=== PATIENT | female | born 1975 | race Caucasian/White ===

== ENCOUNTER → 2016-08-06 | Outpatient (CLI) | payer OTHER | LOC: KOH-I 09:30 | DX: M25.521 Pain in right elbow (principal); M25.561 Pain in right knee | CPT/HCPCS: 73080; 73564 ==

== ENCOUNTER 2020-08-24 08:26 | Emergency (ER) | payer OTHER ==
[2020-08-24 09:34] LABS: HEMOGLOBIN 14.9 gm/dl (12.3-15.3); RED BLOOD COUNT 4.65 M/UL (4.00-5.10); WHITE BLOOD COUNT 13.3 K/UL (4.5-11.0)
[2020-08-24 09:52] LABS: BUN/CREATININE RATIO 14 (0-10)
[2020-08-24] MEDS ORDERED: ZOFRAN4 MG PO (11:38)
[2020-08-24] MEDS ORDERED: ZITHROMAX250 MG PO (11:38)
[2020-08-24] MEDS ORDERED: SUDAFED 60 MG T60 MG PO (11:38)
[2020-08-24] MEDS ORDERED: MEDROL DOSEPAK 24 MG PO (11:38)
== END 2020-08-24 12:00 | disposition home or self-care (01) ==
LOC: ER1 08:26
PROVIDERS: Physician Assistant Medical
DX: J06.9 Acute upper respiratory infection, unspecified (principal); F17.210 Nicotine dependence, cigarettes, uncomplicated; Z88.0 Allergy status to penicillin; Z88.5 Allergy status to narcotic agent; Z20.822 Contact with and (suspected) exposure to COVID-19
CPT/HCPCS: 0240U; 71045; 80053; 85025; 96374; 96375; 99284; J1885; J2405